=== PATIENT | male | born 1970 | race African-American/Black ===

== ENCOUNTER 2019-04-10 15:01 | Inpatient (IN) | payer OTHER ==
[2019-04-10 16:35] VITALS: BMI 23.8
--- NOTE | 2019-04-10 19:22 | HP ---
CIWA Score Nausea/Vomitin-No Nausea/No Vomiting Muscle Tremors: None Anxiety: 0-No Anxiety, at Ease Agitation: 0-Normal Activity Paroxysmal Sweats: No Perspiration Orientation: 0-Oriented Tacttile Disturbances: 0-None Auditory Disturbances: 0-None Visual Disturbances: 0-None Headache: 0-None Present CIWA-Ar Total Score: 0 - Admission Criteria OASAS Guidelines: Admission for Medically Managed Detox: Requires at least one of the followin. CIWA greater than 12 2. Seizures within the past 24 hours 3. Delirium tremens within the past 24 hours 4. Hallucinations within the past 24 hours 5. Acute intervention needed for co occurring medical disorder 6. Acute intervention needed for co occurring psychiatric disorder 7. Severe withdrawal that cannot be handled at a lower level of care (continued vomiting, continued diarrhea, abnormal vital signs) requiring intravenous medication and/or fluids 8. Admission ROS [facility] Allergies/Adverse Reactions: Allergies Allergy/AdvReac Type Severity Reaction Status Date / Time No Known Allergies Allergy Verified 04/10/19 16:29 History of Present Illness: 48 y/o M with history of alcohol, crack cocaine and marijuana use presenting to [facility] initially for detox as he is looking to go into a "fpc program which can eventually help with housing." Pt has been drinking since he was in his teens. He currently drinks about 2-3 12oz can of marguerita alcohol a day and half a pint of vodka on weekends. he denies currently experiencing any withdrawal symptoms.He denies any blackouts or withdrawal seizure. LAst drink this aftern He also smokes crack cocaine on and off since he was 18. he currently smokes 40- 50$ twice a month. no injection He also smokes 2-3 blunts twice a week. 1PPD of cigarettes since 16 years of age. PMH: HTN PSYCH HX: none PSH: Maxillofacial surgery from dog bite social Hx: currently lives with family, unemployed PE: VS : 98.1F, 155/95 mmHg, 99bpm, 17 Utox: THC DENISE: 0.044 CIWA:0 General : NAD HEENT: PERRLA, moist mucous membranes LUNGS: VBS b/l HEART: RRR no MRG Abdomen: +BS, NTND extremities: 2+ pulses, no edema neuro: grossly intact Plan: substance use disorder: admit to rehab when DENISE is 0 HTN: norvasc 5mg PO daily Smoking cessation counseled: declined patch - Ebola screening Have you traveled outside of the country in the last 21 days: No Have you had contact with anyone from an Ebola affected area: No Do you have a fever: No Patient History - Smoking Cessation Smoking history: Current every day smoker Aproximately how many cigarettes per day: 20 Hx Chewing Tobacco Use: No Initiated information on smoking cessation: Yes 'Breaking Loose' booklet given: 04/10/19 - Substances abused Alcohol Substance route: Oral Frequency: Daily Amount used: 1/2 PINT OF VODKA, 3-12 OZ MARGARITAS Age of first use: 11 Date of last use: 04/09/19 Crack Substance route: Smoking Frequency: 1-3 times last 30 days Amount used: $50 Age of first use: 17 Date of last use: 04/02/19 Marijuana/Hashish Substance route: Smoking Frequency: 1-2 times per week Amount used: $20 Age of first use: 11 Date of last use: 04/08/19 Admission Physical Exam BHS - Vital Signs Vital Signs: Vital Signs - 24 hr 04/10/19 04/10/19 16:29 18:40 Temperature 98.1 F 98.1 F Pulse Rate 99 H 99 H Respiratory 17 17 Rate Blood Pressure 155/95 155/95 Breathalyzer - Breathalyzer Breathalyzer: 0.044 Urine Drug Screen - Test Device Lot number: [id number] Expiration date: 12/04/20 - Control Is test valid?: Yes - Results Drug screen NEGATIVE: No Urine drug screen results: THC-Marijuana Inpatient Rehab Admission - Rehab Decision to Admit Inpatient rehab admission?: Yes - Initial Determination Are CD services needed?: Yes Free of communicable disease: Yes Not in need of hospitalization: Yes - Rehab Admission Criteria Previous failed treatment: No Poor recovery environment: Yes Comorbidities: Yes Lacks judgement: Yes Patient is meeting Inpatient Rehab admission criteria:: Yes
--- NOTE | 2019-04-10 19:25 | PN ---
Teaching Attending Note Name of Resident: Madalyn Pretty ATTENDING PHYSICIAN STATEMENT I saw and evaluated the patient. I reviewed the resident's note and discussed the case with the resident. I agree with the resident's findings and plan as documented. SUBJECTIVE: pt here requesting detox from etoh use , reports 1-3 drinks daily 20 oz cans and some liquor on weekends, denies symptoms if not drinking . OBJECTIVE: wnwd , NAD ASSESSMENT AND PLAN: Alcohol use d/o - rehab Vital Signs - 24 hr 04/10/19 04/10/19 16:29 18:40 Temperature 98.1 F 98.1 F Pulse Rate 99 H 99 H Respiratory 17 17 Rate Blood Pressure 155/95 155/95
[2019-04-10] MEDS ORDERED: MENTHOL/PHENOL 1 EACH UD MM PRN (19:55)
[2019-04-10] MEDS ORDERED: P-EPHED 60MG/TRIPROLIDI 2.5MG TABLET PO PRN (19:55)
[2019-04-10] MEDS ORDERED: MAG HYDROX/AL HYDROX/SIMETH 30 ML UNIT-DOSE CUP PO PRN (19:55)
[2019-04-10] MEDS ORDERED: guaiFENesin 200 MG/10 ML 10 ML UNIT-DOSE CUPS PO PRN (19:55)
[2019-04-10] MEDS ORDERED: MAGNESIUM CITRATE 300 ML BOTTLE PO PRN (19:55)
[2019-04-10] MEDS ORDERED: LOPERAMIDE HCL 2 MG CAPSULE PO PRN (19:55)
[2019-04-10] MEDS ORDERED: IBUPROFEN 400 MG TABLET (FP) PO PRN (19:55)
[2019-04-10] MEDS ORDERED: ACETAMINOPHEN 325 MG TABLET (FP) PO PRN (19:55)
[2019-04-10] MEDS ORDERED: hydrOXYzine PAMOATE 25 MG CAPSULE (FP) PO PRN (19:55)
[2019-04-10] MEDS ORDERED: MAGNESIUM HYDROX 2400MG/30ML ORAL SUSPENSION 30 ML CUP PO PRN (19:55)
[2019-04-10] MEDS ORDERED: amLODIPine BESYLATE 5 MG TABLET (FP) PO ONE (21:00)
[2019-04-10] MEDS ORDERED: MELATONIN 5 MG TABLETS PO PRN (22:00)
[2019-04-10] MEDS: THIAMINE HCL 100 MG TABLET (FP) PO SCH (22:40)
[2019-04-11] MEDS ORDERED: TUBERCULIN PPD 5 TU/0.1ML VIAL ID ONE (00:04)
[2019-04-11] MEDS: PRENATAL VITAMINS W/ FOLIC ACID TABLET (FP) PO SCH (09:06)
[2019-04-11] MEDS ORDERED: amLODIPine BESYLATE 5 MG TABLET (FP) PO SCH (10:00)
[2019-04-11] MEDS ORDERED: FLU VACCINE QUAD 60 MCG/0.5 ML (MDV 19-20) IM ONE (12:00)
[2019-04-11] MEDS ORDERED: PNEUMOCOCCAL 23 VACCINE 0.5 ML VIAL IM ONE (12:00)
[2019-04-11] MEDS ORDERED: PNEUMOC 13-VAL CONJ-DIP CRM/PF 0.5 ML DISP.SYRIN IM ONE (12:00)
[2019-04-11 14:59] LABS: HEMATOCRIT 39.6 % (35.4-49); HEMOGLOBIN 12.6 GM/dL (11.7-16.9); MCH 27.8 pg (25.7-33.7); MCHC 31.9 g/dl (32.0-35.9); MEAN CELL VOLUME 87.2 fl (80-96); MEAN PLT VOLUME 8.2 fl (7.5-11.1); PLATELET COUNT 272 K/MM3 (134-434); RBC 4.54 M/mm3 (4.00-5.60); RDW 15.2 % (11.9-15.9)
[2019-04-11 15:16] LABS: ALBUMIN 3.8 g/dl (3.4-5.0); BILIRUBIN,TOTAL 0.5 mg/dL (0.2-1); BLOOD UREA NITROGEN 10.5 mg/dL (7-18); CALCIUM 9.6 mg/dL (8.5-10.1); CREATININE 0.9 mg/dL (0.55-1.3); POTASSIUM 4.4 mmol/L (3.5-5.1); TOT PROT 7.1 g/dl (6.4-8.2)
--- NOTE | 2019-04-11 15:32 | PN ---
[facility] Progress Note Note: Pt is a 48 y/o male with a hx of MARK admitted to rehab from [facility]. Pt reorts he has no PCP and goes to [facility] for care when needed. Pt has a hx of unmanaged HTN and was currently put on Amlodipine 5 mg po daily on admission. Pt reports he would like to go to a longterm treatment after here. Vital Signs - 24 hr 04/10/19 04/10/19 04/10/19 16:29 18:40 21:39 Temperature 98.1 F 98.1 F 97.9 F Pulse Rate 99 H 99 H 74 Respiratory 17 17 18 Rate Blood Pressure 155/95 155/95 04/10/19 04/11/19 04/11/19 22:36 00:30 03:30 Temperature 97.8 F Pulse Rate 74 Respiratory 19 18 18 Rate Blood Pressure 148/89 04/11/19 09:05 Temperature Pulse Rate 91 H Respiratory Rate Blood Pressure 162/106 H Laboratory Tests 04/11/19 04/11/19 10:00 10:00 WBC 6.0 RBC 4.54 Hgb 12.6 Hct 39.6 MCV 87.2 MCH 27.8 MCHC 31.9 L RDW 15.2 Plt Count 272 MPV 8.2 Sodium 141 Potassium 4.4 Chloride 104 Carbon Dioxide 32 Anion Gap 5 L BUN 10.5 Creatinine 0.9 Est GFR (CKD-EPI)AfAm 115.02 Est GFR (CKD-EPI)NonAf 99.24 Random Glucose 89 Calcium 9.6 Total Bilirubin 0.5 AST 13 L ALT 20 Alkaline Phosphatase 104 Total Protein 7.1 Albumin 3.8 Alert o x 3 nad oob ambulating with steady gait A/P New rehab pt Uncontrolled HTN Maintain safety D/w pt will increase Amlodipine 10 mg po daily Clonidine 0.1 mg po BID prn for elevated BP Pt will follow up with counselor to arrange for aftercare. 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
[2019-04-11] MEDS ORDERED: cloNIDine HCL 0.1 MG TABLET PO PRN (15:44)
[2019-04-11] MEDS: THIAMINE HCL 100 MG TABLET (FP) PO SCH (21:21)
[2019-04-12 10:00] LABS: RPR REACTIVE 1:8 (NONREACTIVE)
[2019-04-12] MEDS: PRENATAL VITAMINS W/ FOLIC ACID TABLET (FP) PO SCH (10:20)
[2019-04-12] MEDS: amLODIPine BESYLATE 10 MG TABLET (FP) PO SCH (10:20)
[2019-04-12 11:19] LABS: EPI CELLS 0.2 /HPF (0-5/HPF); HYALINE CASTS 16 /lpf (0-8); PH,URINE 8.5 (5.0-8.0); URINE APPEARANCE CLEAR; URINE BACTERIA 23.9 /hpf (NEGATIVE); URINE BILIRUBIN NEGATIVE (NEGATIVE); URINE COLOR YELLOW; URINE GLUCOSE (UA) NEGATIVE (NEGATIVE); URINE KETONE NEGATIVE (NEGATIVE); URINE LEUK ESTERASE 1+ (NEGATIVE); URINE NITRITE NEGATIVE (NEGATIVE); URINE PROTEIN NEGATIVE (NEGATIVE); URINE UROBILINOGEN 0.2 mg/dL (0.2-1.0); URINE WBC 28 /hpf (0-5)
--- NOTE | 2019-04-12 11:54 | PN ---
[facility] Progress Note Note: Laboratory Last Values WBC 6.0 K/mm3 (4.0-10.0) 04/11/19 10:00 RBC 4.54 M/mm3 (4.00-5.60) 04/11/19 10:00 Hgb 12.6 GM/dL (11.7-16.9) 04/11/19 10:00 Hct 39.6 % (35.4-49) 04/11/19 10:00 MCV 87.2 fl (80-96) 04/11/19 10:00 MCH 27.8 pg (25.7-33.7) 04/11/19 10:00 MCHC 31.9 g/dl (32.0-35.9) L 04/11/19 10:00 RDW 15.2 % (11.9-15.9) 04/11/19 10:00 Plt Count 272 K/MM3 (134-434) 04/11/19 10:00 MPV 8.2 fl (7.5-11.1) 04/11/19 10:00 Sodium 141 mmol/L (136-145) 04/11/19 10:00 Potassium 4.4 mmol/L (3.5-5.1) 04/11/19 10:00 Chloride 104 mmol/L (98-107) 04/11/19 10:00 Carbon Dioxide 32 mmol/L (21-32) 04/11/19 10:00 Anion Gap 5 MMOL/L (8-16) L 04/11/19 10:00 BUN 10.5 mg/dL (7-18) 04/11/19 10:00 Creatinine 0.9 mg/dL (0.55-1.3) 04/11/19 10:00 Est GFR (CKD-EPI)AfAm 115.02 04/11/19 10:00 Est GFR (CKD-EPI)NonAf 99.24 04/11/19 10:00 Random Glucose 89 mg/dL (74-106) 04/11/19 10:00 Calcium 9.6 mg/dL (8.5-10.1) 04/11/19 10:00 Total Bilirubin 0.5 mg/dL (0.2-1) 04/11/19 10:00 AST 13 U/L (15-37) L 04/11/19 10:00 ALT 20 U/L (13-61) 04/11/19 10:00 Alkaline Phosphatase 104 U/L (45-117) 04/11/19 10:00 Total Protein 7.1 g/dl (6.4-8.2) 04/11/19 10:00 Albumin 3.8 g/dl (3.4-5.0) 04/11/19 10:00 Urine Color Yellow 04/12/19 08:40 Urine Appearance Clear 04/12/19 08:40 Urine pH 8.5 (5.0-8.0) H 04/12/19 08:40 Ur Specific [place] 1.023 (1.010-1.035) 04/12/19 08:40 Urine Protein Negative (NEGATIVE) 04/12/19 08:40 Urine Glucose (UA) Negative (NEGATIVE) 04/12/19 08:40 Urine Ketones Negative (NEGATIVE) 04/12/19 08:40 Urine Blood 1+ (NEGATIVE) H 04/12/19 08:40 Urine Nitrite Negative (NEGATIVE) 04/12/19 08:40 Urine Bilirubin Negative (NEGATIVE) 04/12/19 08:40 Urine Urobilinogen 0.2 mg/dL (0.2-1.0) 04/12/19 08:40 Ur Leukocyte Esterase 1+ (NEGATIVE) H 04/12/19 08:40 Urine WBC (Auto) 28 /hpf (0-5) 04/12/19 08:40 Urine Casts (Auto) 16 /lpf (0-8) 04/12/19 08:40 U Epithel Cells (Auto) 0.2 /HPF (0-5/HPF) 04/12/19 08:40 Urine Bacteria (Auto) 23.9 /hpf (NEGATIVE) 04/12/19 08:40 RPR Titer Reactive 1:8 (NONREACTIVE) H 04/11/19 10:00 rpr 1:8 treponemal antibody pending waiting for treponemal antibody result
[2019-04-12 12:51] LABS: TREPONEMA ANTIBODY REACTIVE (NONREACTIVE)
[2019-04-12] MEDS: THIAMINE HCL 100 MG TABLET (FP) PO SCH (21:10)
[2019-04-13] MEDS: PRENATAL VITAMINS W/ FOLIC ACID TABLET (FP) PO SCH (10:13)
[2019-04-13] MEDS: amLODIPine BESYLATE 10 MG TABLET (FP) PO SCH (10:14)
[2019-04-13] MEDS: THIAMINE HCL 100 MG TABLET (FP) PO SCH (21:10)
[2019-04-14] MEDS: amLODIPine BESYLATE 10 MG TABLET (FP) PO SCH (10:43)
[2019-04-14] MEDS: PRENATAL VITAMINS W/ FOLIC ACID TABLET (FP) PO SCH (10:43)
--- NOTE | 2019-04-14 13:04 | PN ---
[facility] Progress Note Note: Pt reports hx of syphikis with treatment x 3 shots in the past. Reports recent unprotected sexual relationships. Current labs reviewed. Laboratory Tests 04/11/19 04/11/19 04/11/19 10:00 10:00 10:00 WBC 6.0 RBC 4.54 Hgb 12.6 Hct 39.6 MCV 87.2 MCH 27.8 MCHC 31.9 L RDW 15.2 Plt Count 272 MPV 8.2 Sodium 141 Potassium 4.4 Chloride 104 Carbon Dioxide 32 Anion Gap 5 L BUN 10.5 Creatinine 0.9 Est GFR (CKD-EPI)AfAm 115.02 Est GFR (CKD-EPI)NonAf 99.24 Random Glucose 89 Calcium 9.6 Total Bilirubin 0.5 AST 13 L ALT 20 Alkaline Phosphatase 104 Total Protein 7.1 Albumin 3.8 Urine Color Urine Appearance Urine pH Ur Specific [place] Urine Protein Urine Glucose (UA) Urine Ketones Urine Blood Urine Nitrite Urine Bilirubin Urine Urobilinogen Ur Leukocyte Esterase Urine WBC (Auto) Urine Casts (Auto) U Epithel Cells (Auto) Urine Bacteria (Auto) RPR Titer Reactive 1:8 H T.pallidum Ab (MHA) Reactive 04/12/19 08:40 WBC RBC Hgb Hct MCV MCH MCHC RDW Plt Count MPV Sodium Potassium Chloride Carbon Dioxide Anion Gap BUN Creatinine Est GFR (CKD-EPI)AfAm Est GFR (CKD-EPI)NonAf Random Glucose Calcium Total Bilirubin AST ALT Alkaline Phosphatase Total Protein Albumin Urine Color Yellow Urine Appearance Clear Urine pH 8.5 H Ur Specific [place] 1.023 Urine Protein Negative Urine Glucose (UA) Negative Urine Ketones Negative Urine Blood 1+ H Urine Nitrite Negative Urine Bilirubin Negative Urine Urobilinogen 0.2 Ur Leukocyte Esterase 1+ H Urine WBC (Auto) 28 Urine Casts (Auto) 16 U Epithel Cells (Auto) 0.2 Urine Bacteria (Auto) 23.9 RPR Titer T.pallidum Ab (MHA) Serology result noted A/P RPR 1:8 MHA Reactive D/w pt -Bicillin LA 2.4 mill units IM x 1 booster to be given. Pt agreeable with poc
[2019-04-14] MEDS ORDERED: PENICILLIN G BENZATHINE 2,400,000 UNIT/4 ML PFS IM ONE (14:00)
[2019-04-14] MEDS: THIAMINE HCL 100 MG TABLET (FP) PO SCH (21:16)
[2019-04-15] MEDS: PRENATAL VITAMINS W/ FOLIC ACID TABLET (FP) PO SCH (10:36)
[2019-04-15] MEDS: amLODIPine BESYLATE 10 MG TABLET (FP) PO SCH (10:36)
[2019-04-15] MEDS: TOLNAFTATE 1% CREAM 15 GM TUBE TP SCH (21:57)
[2019-04-15] MEDS: THIAMINE HCL 100 MG TABLET (FP) PO SCH (21:57)
[2019-04-16 06:54] VITALS: TEMP 97.8
[2019-04-16] MEDS: TOLNAFTATE 1% CREAM 15 GM TUBE TP SCH ×2 (10:25→21:15)
[2019-04-16] MEDS: amLODIPine BESYLATE 10 MG TABLET (FP) PO SCH (10:29)
[2019-04-16] MEDS: PRENATAL VITAMINS W/ FOLIC ACID TABLET (FP) PO SCH (10:29)
[2019-04-16] MEDS: THIAMINE HCL 100 MG TABLET (FP) PO SCH (21:15)
[2019-04-17] MEDS: amLODIPine BESYLATE 10 MG TABLET (FP) PO SCH (10:11)
[2019-04-17] MEDS: PRENATAL VITAMINS W/ FOLIC ACID TABLET (FP) PO SCH (10:11)
[2019-04-17] MEDS: TOLNAFTATE 1% CREAM 15 GM TUBE TP SCH ×2 (10:12→21:24)
[2019-04-17] MEDS: THIAMINE HCL 100 MG TABLET (FP) PO SCH (21:24)
[2019-04-18 06:49] VITALS: BP 130/76; PULSE 67
[2019-04-18] MEDS: amLODIPine BESYLATE 10 MG TABLET (FP) PO SCH (09:02)
[2019-04-18] MEDS: PRENATAL VITAMINS W/ FOLIC ACID TABLET (FP) PO SCH (09:02)
[2019-04-18] MEDS: TOLNAFTATE 1% CREAM 15 GM TUBE TP SCH (09:02)
--- NOTE | 2019-04-18 09:53 | DS ---
[facility] Rehab Discharge Summary - [facility] Rehab Discharge Summary Admission Date: 04/10/19 Discharge Date: 04/18/19 - History Present History: Alcohol dependence, Cocaine dependence - Discharge Physical Exam Vital Signs: Vital Signs Temperature 97.8 F 04/18/19 06:49 Pulse Rate 67 04/18/19 06:49 Respiratory Rate 18 04/18/19 06:49 Blood Pressure 130/76 04/18/19 06:49 O2 Sat by Pulse Oximetry (%) Pertinent Admission Physical Exam Findings: 48 y/o M with history of alcohol, crack cocaine and marijuana. Pt has been drinking since he was in his teens. He currently drinks about 2-3 12oz can of marguerita alcohol a day and half a pint of vodka on weekends. He denies currently experiencing any withdrawal symptom: any blackouts, withdrawal seizure and shakes. He also smokes crack cocaine on and off since he was 18. he currently smokes 40-50$ twice a month. no injection He also smokes 2-3 blunts twice a week. 1PPD of cigarettes since 16 years of age. PMH: HTN ROS: denies alcohol cravings, n/v/d, shakes and sweating PE alert and oriented x 3 skin warm and dry +perrla, eoms intact bl gi nt, nd ext full rom, amb ad vernell no tremors in NAD denies SI/HI - Treatment Discharge Condition: Discharge condition good Hospital Course: Patient completed rehab, attended group meetings and 1:1 counseling sessions. He was treated for Syphilis during admission. Patient in stable medical condition and denies SI/HI. Aftercare arranged for [facility] which he will go to today after discharge. Patient encouraged to continue group meetings to prevent relapse and follow up with PCP for medical management. Laboratory Tests 04/11/19 04/11/19 04/11/19 10:00 10:00 10:00 WBC 6.0 RBC 4.54 Hgb 12.6 Hct 39.6 MCV 87.2 MCH 27.8 MCHC 31.9 L RDW 15.2 Plt Count 272 MPV 8.2 Sodium 141 Potassium 4.4 Chloride 104 Carbon Dioxide 32 Anion Gap 5 L BUN 10.5 Creatinine 0.9 Est GFR (CKD-EPI)AfAm 115.02 Est GFR (CKD-EPI)NonAf 99.24 Random Glucose 89 Calcium 9.6 Total Bilirubin 0.5 AST 13 L ALT 20 Alkaline Phosphatase 104 Total Protein 7.1 Albumin 3.8 Urine Color Urine Appearance Urine pH Ur Specific [place] Urine Protein Urine Glucose (UA) Urine Ketones Urine Blood Urine Nitrite Urine Bilirubin Urine Urobilinogen Ur Leukocyte Esterase Urine WBC (Auto) Urine Casts (Auto) U Epithel Cells (Auto) Urine Bacteria (Auto) RPR Titer Reactive 1:8 H T.pallidum Ab (MHA) Reactive 04/12/19 08:40 WBC RBC Hgb Hct MCV MCH MCHC RDW Plt Count MPV Sodium Potassium Chloride Carbon Dioxide Anion Gap BUN Creatinine Est GFR (CKD-EPI)AfAm Est GFR (CKD-EPI)NonAf Random Glucose Calcium Total Bilirubin AST ALT Alkaline Phosphatase Total Protein Albumin Urine Color Yellow Urine Appearance Clear Urine pH 8.5 H Ur Specific [place] 1.023 Urine Protein Negative Urine Glucose (UA) Negative Urine Ketones Negative Urine Blood 1+ H Urine Nitrite Negative Urine Bilirubin Negative Urine Urobilinogen 0.2 Ur Leukocyte Esterase 1+ H Urine WBC (Auto) 28 Urine Casts (Auto) 16 U Epithel Cells (Auto) 0.2 Urine Bacteria (Auto) 23.9 RPR Titer T.pallidum Ab (MHA) Vital Signs Temperature 97.8 F 04/18/19 06:49 Pulse Rate 67 04/18/19 06:49 Respiratory Rate 18 04/18/19 06:49 Blood Pressure 130/76 04/18/19 06:49 O2 Sat by Pulse Oximetry (%) Ambulatory Orders Amlodipine Besylate 10 mg PO DAILY #30 tablet 04/18/19 - Medication Discharge Medications: Ambulatory Orders Amlodipine Besylate 10 mg PO DAILY #30 tablet 04/18/19 - Medication-Assisted Treatment (MAT) Medication-Assisted Treatment (MAT): No - Discharge Instructions Diet, activity, other medical instructions: Diet: MAYE as venessa Activity: as venessa Other medical instructions: follow up with pcp as recommended - Follow-up Referral Minutes to complete discharge: 30 - AMA Did Patient Leave Against Medical Advice: No
== END 2019-04-18 09:15 | disposition home or self-care (01) | DRG 772 ==
LOC: YASAS 15:01 → Y5N 20:54
PROVIDERS: ADMIT Neuromusculoskeletal Medicine & OMM; ATTEND Neuromusculoskeletal Medicine & OMM
PROC: HZ42ZZZ Group Counseling for Substance Abuse Treatment, Cognitive-Behavioral (ICD-10-PCS; principal; 2019-04-10)
DX: F10.20 Alcohol dependence, uncomplicated (principal); F14.20 Cocaine dependence, uncomplicated; F12.20 Cannabis dependence, uncomplicated; F17.210 Nicotine dependence, cigarettes, uncomplicated; I10 Essential (primary) hypertension; Z87.438 Personal history of other diseases of male genital organs; Z59.0 Homelessness
CPT/HCPCS: 36415; 80053; 81003; 85027; 86593; 86780; G0008; Q2036